=== PATIENT | female | born 1995 | race American Indian/Alaskan Native ===

== ENCOUNTER 2017-08-24 02:40 | Outpatient (CLI) | payer MEDICAID ==
[2017-08-24] MEDS ORDERED: VISTARIL PO ONE (03:49)
[2017-08-24 04:41] VITALS: BP 113/68
== END 2017-08-24 04:46 | disposition home or self-care (01) ==
LOC: TRG 02:40 → LD 02:40 → TRG 04:46
PROVIDERS: ATTEND Obstetrics & Gynecology
DX: O47.1 False labor at or after 37 completed weeks of gestation (principal); Z3A.37 37 weeks gestation of pregnancy
CPT/HCPCS: 59025; Q0177

== ENCOUNTER 2017-08-24 18:19 | Inpatient (IN) | payer MEDICAID ==
[2017-08-24] MEDS ORDERED: LACTATED RINGERS 1,000 ML IV ONE (18:46)
[2017-08-24] MEDS ORDERED: STADOL IV ONE (18:47)
[2017-08-24] MEDS ORDERED: MINERAL OIL PO PRN (21:34)
[2017-08-24] MEDS ORDERED: BRETHINE SUB-Q PRN (21:34)
[2017-08-24] MEDS ORDERED: ZOFRAN IV PRN (21:34)
[2017-08-24] MEDS ORDERED: ePHEDrine SULFATE IV PRN ×2 (21:34→23:00)
[2017-08-24] MEDS ORDERED: BRETHINE IVP PRN (21:34)
[2017-08-24] MEDS ORDERED: XYLOCAINE 2% INFILTRATI ONE (21:34)
[2017-08-24] MEDS ORDERED: SUBLIMAZE IV PRN (21:34)
--- NOTE | 2017-08-24 21:42 | History and Physical Report ---
History of Present Illness Date of examination: 08/24/17 Chief complaint: Active labor @ 37w History of present illness: EDC Calculations by LMP: 09/14/2017 Past History : 1 Term Births: 0 Premature Births: 0 Living Children: 0 Para: 0 Mult. Births: 0 Prev : 0 Prev. attempt? 0 Aborta: 0 Elect. Ab: 0 Spont. Ab: 0 Ectopics: 0 Past Medical History: Negative Past Medical History Past Surgical History: negative Past Medical History Anesthesia Complications: negative Anemia: negative Autoimmune Disorder: negative Bleeding Disorder: negative Blood Transfusions: negative Breast Disease: negative Diabetes: negative Heart Disease: negative Hypertension: negative Hepatitis/Liver Disease: negative Kidney Disease/UTI: negative Neurologic/Epilepsy/Migraines: negative Phlebitis/Varicosities: negative Psychiatric: negative Pulmonary Disease/Asthma: negative Thyroid Disease: negative Hospitalizations: negative Surgery (Non-community planning technician): negative Abnormal PAP: negative ZEE Exposure: negative Infertility: negative Uterine Anomaly: negative Uterine Surgery (not C/S): negative Other Gynecologic Problems: negative Family Hx: Father - testicular cancer Social Hx: single daily THC user Infection History Hx of STD: none HIV Risk Eval: no Hepatitis B Risk Eval: low risk Personal hx. of genital herpes: no Partner hx. of genital herpes: no Rash, Viral, or Febrile illness since last LMP? no Varicella/Chicken Pox Status: Immunized Genetic History Congenital Heart Defect: Mom: no Dad: no Kevin Disease: Mom: no Dad: no Thalassemia Mom: no Dad: no Neural Tube Defect Mom: no Dad: no Down's Syndrome Mom: no Dad: no Jad-Sachs Mom: no Dad: no Sickle Cell Disease/Trait Mom: no Dad: no Hemophilia Mom: no Dad: no Muscular Dystrophy Mom: no Dad: no Cystic Fibrosis Mom: no Dad: no Buck Chorea Mom: no Dad: no Mental Retardation Mom: no Dad: no Fragile X Mom: no Dad: no Other Genetic/Chromosomal Disorder Mom: no Dad: no Child w/other defect Mom: no Dad: no Enviromental Exposures Xray Exposure: no Medication, drug, or alcohol use since LMP: no Chemical/Other Exposure: no Exposure to Cat Liter: no Hx of Parvovirus (Fifth Disease): no Occupational Exposure to Children: none Active Medications (reviewed today): None Current Allergies (reviewed today): No known allergies Past History Past Medical History: other (see HPI) Past Surgical History: other (see HPI) 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) Family/Genetic History: other (see HPI) - Obstetrical History Expected Date of Delivery: 09/14/17 Actual Gestation: 37 Week(s) 0 Day(s) : 1 Para: 0 Number of Pregnancies: 0 Spontaneous Abortions: 0 Induced : 0 Number of Living Children: 0 Medications and Allergies Allergies Allergy/AdvReac Type Severity Reaction Status Date / Time No Known Allergies Allergy Verified 03/19/16 04:05 Review of Systems All systems: negative - Vital Signs Vital signs: Vital Signs Temp Resp 98.6 F 18 08/24/17 18:31 08/24/17 18:31 Temp Pulse Resp BP Pulse Ox 98.6 F 08/24/17 18:31 08/24/17 18:31 - Physical Exam Breasts: Positive: normal Cardiovascular: Regular rate Lungs: Positive: Clear to auscultation, Normal air movement Abdomen: Positive: normal appearance, soft Genitourinary (Female): Positive: normal external genitalia, normal perenium Vulva: both: normal Vagina: Positive: normal moisture Uterus: Positive: normal size Extremities: Positive: normal - Obstetrical FHR: auscultation normal Uterine Contraction Monitor Mode: External Cervical Dilatation: 4.5 (per newsroom intern) Cervical Effacement Percentage: 100 Uterine Contraction Pattern: Regular Uterine Tone Measurement Phase: Contraction Results All other labs normal. Assessment and Plan 21y/o @ 37 weeks admitted for labor. She is rosita regularly and changed her cervix from 3 to 4.5 in 2 hours. GBS neg, Admission orders in EMR. start bolus for epidural. Anticipate . - Patient Problems (1) Active labor at term Current Visit: Yes Status: Acute (2) 37 weeks gestation of Current Visit: Yes Status: Acute (3) Sickle cell trait Current Visit: Yes Status: Acute
[2017-08-24] MEDS ORDERED: PITOCin/NS 20 UNIT/1000ML DRIP 20 UNITS/1,000 ML BAG IV SCH (22:00)
[2017-08-24 22:16] LABS: Hematocrit 28.1 % (30.3-42.9); Hemoglobin 8.9 gm/dl (10.1-14.3); Mean Corpuscular HGB Conc 32 % (30-34); Platelet Count 253 K/mm3 (140-440); Red Blood Count 4.46 M/mm3 (3.65-5.03)
[2017-08-24 22:19] LABS: Mean Corpuscular Hemoglobin 20 pg (28-32); Mean Corpuscular Volume 63 fl (79-97)
[2017-08-24] MEDS: LACTATED RINGERS 1,000 ML IV SCH (22:39)
[2017-08-24] MEDS ORDERED: NARCAN 2 MG/2 ML IV PRN (23:00)
--- NOTE | 2017-08-24 23:00 | Anesthesia Consultation ---
Anesthesia Consult and Med Hx - Airway Anesthetic Teeth Evaluation: Good ROM Head & Neck: Adequate Mental/Hyoid Distance: Adequate Mallampati Class: Class II Intubation Access Assessment: Good - Pulmonary Exam CTA: Yes - Cardiac Exam Cardiac Exam: RRR - Pre-Operative Health Status ASA Pre-Surgery Classification: ASA2 Proposed Anesthetic Plan: Epidural, Spinal - Pulmonary Hx Asthma: No - Cardiovascular System Hx Hypertension: No - Central Nervous System Hx Seizures: No Hx Psychiatric Problems: No - Endocrine Hx Renal Disease: No Hx Hypothyroidism: No Hx Hyperthyroidism: No - Hematic Hx Anemia: No Hx Sickle Cell Disease: No - Other Systems Hx Alcohol Use: No
[2017-08-24] MEDS: fentaNYL-BUPIV 2 MCG/ML-0.125% 200 MCG/100 ML BAG EPIDURAL SCH (23:58)
--- NOTE | 2017-08-25 00:20 | Progress Note ---
Assessment and Plan AROM and IUPC placed without difficulty. mild ctx noted after epidural. Will start pitocin augmentation. Anticipate - Patient Problems (1) Active labor at term Current Visit: Yes Status: Acute (2) 37 weeks gestation of Current Visit: Yes Status: Acute (3) Sickle cell trait Current Visit: Yes Status: Acute Subjective - Subjective Date of service: 08/25/17 Principal diagnosis: IUP @ 37+1, labor, mec fluid Interval history: EDC Calculations by LMP: 09/14/2017 Past History : 1 Term Births: 0 Premature Births: 0 Living Children: 0 Para: 0 Mult. Births: 0 Prev : 0 Prev. attempt? 0 Aborta: 0 Elect. Ab: 0 Spont. Ab: 0 Ectopics: 0 Past Medical History: Negative Past Medical History Past Surgical History: negative Past Medical History Anesthesia Complications: negative Anemia: negative Autoimmune Disorder: negative Bleeding Disorder: negative Blood Transfusions: negative Breast Disease: negative Diabetes: negative Heart Disease: negative Hypertension: negative Hepatitis/Liver Disease: negative Kidney Disease/UTI: negative Neurologic/Epilepsy/Migraines: negative Phlebitis/Varicosities: negative Psychiatric: negative Pulmonary Disease/Asthma: negative Thyroid Disease: negative Hospitalizations: negative Surgery (Non-building consultant): negative Abnormal PAP: negative ZEE Exposure: negative Infertility: negative Uterine Anomaly: negative Uterine Surgery (not C/S): negative Other Gynecologic Problems: negative Family Hx: Father - testicular cancer Social Hx: single daily THC user Infection History Hx of STD: none HIV Risk Eval: no Hepatitis B Risk Eval: low risk Personal hx. of genital herpes: no Partner hx. of genital herpes: no Rash, Viral, or Febrile illness since last LMP? no Varicella/Chicken Pox Status: Immunized Genetic History Congenital Heart Defect: Mom: no Dad: no Kevin Disease: Mom: no Dad: no Thalassemia Mom: no Dad: no Neural Tube Defect Mom: no Dad: no Down's Syndrome Mom: no Dad: no Jad-Sachs Mom: no Dad: no Sickle Cell Disease/Trait Mom: no Dad: no Hemophilia Mom: no Dad: no Muscular Dystrophy Mom: no Dad: no Cystic Fibrosis Mom: no Dad: no Elliott Chorea Mom: no Dad: no Mental Retardation Mom: no Dad: no Fragile X Mom: no Dad: no Other Genetic/Chromosomal Disorder Mom: no Dad: no Child w/other defect Mom: no Dad: no Enviromental Exposures Xray Exposure: no Medication, drug, or alcohol use since LMP: no Chemical/Other Exposure: no Exposure to Cat Liter: no Hx of Parvovirus (Fifth Disease): no Occupational Exposure to Children: none Active Medications (reviewed today): None Current Allergies (reviewed today): No known allergies Patient reports: no new complaints (comfortable s/p epidural) Objective - Vital Signs Vital Signs: Vital Signs - 12hr 08/24/17 08/24/17 18:31 22:40 Temperature 98.6 F 98.9 F Pulse Rate 84 Respiratory 18 18 Rate Blood Pressure 128/70 [Left] O2 Sat by Pulse 100 Oximetry - Exam Breasts: normal Cardiovascular: Regular rate Lungs: Clear to auscultation, Normal air movement Abdomen: Present: normal appearance, soft Vulva: both: normal Uterus: Present: normal FHR: auscultation normal, category 1 Uterine Contraction Monitor Mode: Internal Cervical Dilatation: 5 (AROM - mec) Cervical Effacement Percentage: 90 station: -1 Uterine Contraction Pattern: Regular Uterine Tone Measurement Phase: Contraction Uterine Contraction Intensity: Mild Extremities: normal Deep Tendon Reflex Grade: Normal +2 - Labs Labs: Abnormal Labs 08/24/17 21:56 WBC 14.3 H Hgb 8.9 L Hct 28.1 L MCV 63 L MCH 20 L RDW 18.0 H Laboratory Results - last 24 hr 08/24/17 08/24/17 21:56 21:56 WBC 14.3 H RBC 4.46 Hgb 8.9 L Hct 28.1 L MCV 63 L MCH 20 L MCHC 32 RDW 18.0 H Plt Count 253 Blood Type B POSITIVE Antibody Screen Negative
[2017-08-25] MEDS: PITOCin/NS 30 UNIT/500ML 30 UNITS/500 ML BAG IV SCH ×3 (00:29→02:49)
[2017-08-25] MEDS: LACTATED RINGERS 1,000 ML IV SCH (02:51)
[2017-08-25] MEDS ORDERED: XYLOCAINE MPF 2% ONE ×3 (04:41→06:56)
[2017-08-25] MEDS: fentaNYL-BUPIV 2 MCG/ML-0.125% 200 MCG/100 ML BAG EPIDURAL SCH (06:35)
--- NOTE | 2017-08-25 08:35 | Procedure Note ---
OB Delivery Note - Delivery Date of Delivery: 08/25/17 ( Male) Community Relations Advisor: MARISSA BARNEY Estimated blood loss: other (400) - Vaginal Delivery presentation: vertex Delivery position: OA Intrapartum events: meconium Delivery induction: none Delivery augmentation: rupture of membranes, pitocin Delivery monitor: external FHT, internal uterine Route of delivery: Delivery placenta: spontaneous Delivery cord: 3 umbilical vessels Delivery laceration: 1st degree (pt declined repair) Anesthesia: epidural Delivery comments: male infant del over intact perineum SILVINO, crying and vigourous after delivery, placed skin to skin on mother's abdomen. 3 vessel cord clamped and cut. Placenta del intact and complete. small 1st degree vag lac hemostatic, patient declined repair. Apgars 8/9, wt 6#2, maternal EBL 400. Mother and infant remain LDR stable. - Infant A at 1 minute: 8 at 5 minutes: 9 Gender: Male (6#2)
[2017-08-25] MEDS ORDERED: MOTRIN PO SCH (10:44)
[2017-08-25] MEDS ORDERED: COLACE PO SCH (11:00)
[2017-08-25] MEDS ORDERED: TYLENOL PO PRN (11:00)
[2017-08-25] MEDS ORDERED: PHENERGAN PO PRN (11:00)
[2017-08-25] MEDS ORDERED: TUCKS PAD TP PRN (11:00)
[2017-08-25] MEDS ORDERED: DULCOLAX PR PRN (11:00)
[2017-08-25] MEDS ORDERED: LANSINOH TP PRN (11:00)
[2017-08-25] MEDS ORDERED: DERMOPLAST TP PRN (11:00)
[2017-08-25] MEDS ORDERED: NORCO 5/325 PO PRN (11:00)
[2017-08-25] MEDS ORDERED: PRENATAL VITAMIN PO SCH (11:00)
[2017-08-25] MEDS ORDERED: SODIUM CHLORIDE FLUSH SYRINGE 10 ML IV PRN (11:00)
[2017-08-25] MEDS ORDERED: PITOCin/NS 20 UNIT/1000ML DRIP 20 UNITS/1,000 ML BAG IV SCH (11:00)
[2017-08-25] MEDS ORDERED: BENADRYL PO PRN (11:00)
[2017-08-25] MEDS: MOTRIN PO SCH ×2 (12:00→18:28)
[2017-08-25 19:32] LABS: Hematocrit 22.1 % (30.3-42.9); Hemoglobin 6.8 gm/dl (10.1-14.3)
[2017-08-25] MEDS ORDERED: MILK OF MAGNESIA PO PRN (22:00)
[2017-08-26] MEDS: FEOSOL PO SCH ×2 (05:59→09:18)
[2017-08-26] MEDS: MOTRIN PO SCH ×2 (05:59)
[2017-08-26] MEDS ORDERED: BOOSTRIX IM ONE (06:00)
--- NOTE | 2017-08-26 10:31 | Discharge Summary ---
Providers - Providers Date of Admission: 08/24/17 22:17 Date of discharge: 08/26/17 Attending physician: KAMERON TERRY 08/25/17 10:44 Consult to Feed Mill Supervisor [CONS] Routine Reason For Exam: assistance with , SNS Primary care physician: KAMERON TERRY Hospitalization Reason for admission: active labor Delivery: Procedure details: see delivery note Episiotomy: other (see delivery note) complications: none Discharge diagnosis: IUP at term delivered Hospital course: pt s/p vaginal delivery. Antepartum and post courses complicated by anemia for which she is not symptomatic. She denies any headaches, blurry vision , chest pain or palpitations. Condition at discharge: Good Disposition: DC-01 TO HOME OR SELFCARE Plan - Discharge Medications Prescriptions: Docusate Sodium [Colace] 100 mg PO BID PRN #60 capsule PRN Reason: Constipation Ferrous Sulfate [Feosol 325 MG tab] 325 mg PO TID #90 tablet Ibuprofen [Motrin 800 MG tab] 800 mg PO Q8HR PRN #30 tablet PRN Reason: Pain Lidocain2.5%/Prilocai2.5% [Emla] 5 gm TP ONCE PRN #1 tube PRN Reason: Pain - Provider Discharge Summary Activity: routine, no sex for 6 weeks, no heavy lifting 4 weeks, no strenuous exercise Diet: routine Instructions: routine Additional instructions: [] Smoking cessation referral if applicable(refer to patient education folder for contact #) [] Refer to [facility]'s [facility] Booklet Call your doctor immediately for: * Fever > 100.5 * Heavy vaginal bleeding ( >1 pad per hour) * Severe persistent headache * Shortness of breath * Reddened, hot, painful area to leg or breast * Drainage or odor from incision. * Keep incision clean and dry at all times and follow doctor's instructions regarding bathing/showering - Follow up plan Follow up: KAMERON TERRY MD [Primary Care Provider] - 7 Days
[2017-08-26 15:33] VITALS: BP 116/76
== END 2017-08-26 15:20 | disposition home or self-care (01) | DRG 775 ==
LOC: TRG 18:19 → LD 18:20 → TRG 22:16 → LD 22:17 → OB 08-25 10:21
PROVIDERS: ADMIT Obstetrics & Gynecology; ATTEND Obstetrics & Gynecology
PROC: 10E0XZZ Delivery of Products of Conception, External Approach (ICD-10-PCS; principal; 2017-08-25)
PROC: 3E0R3BZ Introduction of Anesthetic Agent into Spinal Canal, Percutaneous Approach (ICD-10-PCS; 2017-08-25)
PROC: 00HU33Z Insertion of Infusion Device into Spinal Canal, Percutaneous Approach (ICD-10-PCS; 2017-08-25)
PROC: 10H07YZ Insertion of Other Device into Products of Conception, Via Natural or Artificial Opening (ICD-10-PCS; 2017-08-25)
PROC: 10907ZC Drainage of Amniotic Fluid, Therapeutic from Products of Conception, Via Natural or Artificial Opening (ICD-10-PCS; 2017-08-25)
DX: O77.0 Labor and delivery complicated by meconium in amniotic fluid (principal); O99.02 Anemia complicating childbirth; D57.3 Sickle-cell trait; Z3A.37 37 weeks gestation of pregnancy; Z37.0 Single live birth; O70.0 First degree perineal laceration during delivery
CPT/HCPCS: 36415; 85014; 85018; 85027; 86592; 86850; 86900; 86901; J0595; J2590; J7120

== ENCOUNTER 2021-08-06 00:06 | Emergency (ER) | payer MEDICAID, OTHER ==
[2021-08-06] MEDS ORDERED: oxyCODONE /ACETAMINOPHEN 5-325MG TAB PO ONE (00:37)
[2021-08-06] MEDS ORDERED: ONDANSETRON 4 MG ODT TAB PO ONE (00:37)
[2021-08-06] MEDS ORDERED: CLINDAMYCIN 300 MG CAP PO ONE (00:37)
[2021-08-06] MEDS ORDERED: KETOROLAC 30 MG/1 ML INJ IM ONE (00:37)
--- NOTE | 2021-08-06 01:10 | Emergency Department Report ---
ED General Adult HPI - General Chief complaint: Dental/Oral Stated complaint: TOOTH ACHE Source: patient Mode of arrival: Ambulatory Limitations: No Limitations - History of Present Illness Initial comments: Patient is a 25-year-old -[place] Citizen female with no past medical history presents to the ED with complaint of acute onset persistent severe painful swollen left mandibular gingiva with premolar and molar toothache for the last 3 days. Patient states that she has been taking Goody's powder with no relief. Patient states the pain is constant and persistent and that she is unable to eat because of worsening pain. Patient states that tonight she was unable to sleep because of worsening pain in the left mandible. Patient denies fever, chills, nausea and vomiting, sore throat, headache, dizziness, syncope, chest pain, shortness of breath or back pain. MD Complaint: Left mandibular premolar and molar toothache, painful swollen gingiva -: Sudden, days(s) (3) Location: mouth Radiation: non-radiation Severity scale (0 -10): 8 Quality: aching, sharp Consistency: constant Improves with: none Worsens with: eating Associated Symptoms: denies other symptoms. denies: confusion, chest pain, cough, diaphoresis, headaches, loss of appetite, malaise, nausea/vomiting, rash, seizure, shortness of breath, syncope, weakness Treatments Prior to Arrival: NSAID - Related Data Previous Rx's Medication Instructions Recorded Last Taken Type Docusate Sodium [Colace] 100 mg PO BID PRN #60 capsule 08/25/17 Unknown Rx Ferrous Sulfate [Feosol 325 MG tab] 325 mg PO TID #90 tablet 08/25/17 Unknown Rx Ibuprofen [Motrin 800 MG tab] 800 mg PO Q8HR PRN #30 tablet 08/25/17 Unknown Rx Lidocain2.5%/Prilocai2.5% [Emla] 5 gm TP ONCE PRN #1 tube 08/25/17 Unknown Rx Acetaminophen/Codeine [Tylenol 1 tab PO Q6H PRN #12 tab 08/06/21 Unknown Rx /Codeine # 3 tab] Clindamycin [Clindamycin CAP] 300 mg PO Q8H #30 cap 08/06/21 Unknown Rx Ketorolac [Toradol] 10 mg PO Q8H PRN #20 tab 08/06/21 Unknown Rx Allergies Allergy/AdvReac Type Severity Reaction Status Date / Time No Known Allergies Allergy Verified 03/19/16 04:05 ED Review of Systems ROS: Stated complaint: TOOTH ACHE Other details as noted in HPI Constitutional: denies: chills, fever Eyes: denies: eye pain, eye discharge, vision change ENT: dental pain (left mandibular premolar and molar toothache), other (Swollen painful left mandibular gingiva). denies: ear pain, throat pain Respiratory: denies: cough, shortness of breath, wheezing Cardiovascular: denies: chest pain, palpitations Endocrine: no symptoms reported Gastrointestinal: denies: abdominal pain, nausea, diarrhea Genitourinary: denies: urgency, dysuria, discharge Musculoskeletal: denies: back pain, joint swelling, arthralgia Skin: denies: rash, lesions Neurological: denies: headache, weakness, paresthesias Psychiatric: denies: anxiety, depression Hematological/Lymphatic: denies: easy bleeding, easy bruising ED Past Medical Hx - Past Medical History Hx Hypertension: No Hx Diabetes: No Hx Deep Vein Thrombosis: No Hx Renal Disease: No Hx Sickle Cell Disease: No Hx Seizures: No Hx Asthma: No Hx HIV: No Additional medical history: anemia - Surgical History Additional Surgical History: RIGHT EYE SURGERY - Social History Smoking Status: Never Smoker - Medications Home Medications: Home Medications Medication Instructions Recorded Confirmed Last Taken Type Docusate Sodium [Colace] 100 mg PO BID PRN #60 capsule 08/25/17 Unknown Rx Ferrous Sulfate [Feosol 325 MG tab] 325 mg PO TID #90 tablet 08/25/17 Unknown Rx Ibuprofen [Motrin 800 MG tab] 800 mg PO Q8HR PRN #30 tablet 08/25/17 Unknown Rx Lidocain2.5%/Prilocai2.5% [Emla] 5 gm TP ONCE PRN #1 tube 08/25/17 Unknown Rx Acetaminophen/Codeine [Tylenol 1 tab PO Q6H PRN #12 tab 08/06/21 Unknown Rx /Codeine # 3 tab] Clindamycin [Clindamycin CAP] 300 mg PO Q8H #30 cap 08/06/21 Unknown Rx Ketorolac [Toradol] 10 mg PO Q8H PRN #20 tab 08/06/21 Unknown Rx ED Physical Exam - General Limitations: No Limitations General appearance: alert, in no apparent distress - Head Head exam: Present: atraumatic, normocephalic, normal inspection - Eye Eye exam: Present: normal appearance, PERRL, EOMI Pupils: Present: normal accommodation - ENT ENT exam: Present: mucous membranes moist, TM's normal bilaterally, normal external ear exam, other (Swollen, tender left mandibular gingiva; tender left mandibular premolar and molar teeth) - Neck Neck exam: Present: normal inspection, full ROM. Absent: tenderness - Respiratory Respiratory exam: Present: normal lung sounds bilaterally. Absent: respiratory distress, wheezes, rales, rhonchi, stridor, chest wall tenderness, accessory muscle use, decreased breath sounds, prolonged expiratory - Cardiovascular Cardiovascular Exam: Present: regular rate, normal rhythm, normal heart sounds. Absent: systolic murmur, diastolic murmur, rubs, gallop - GI/Abdominal GI/Abdominal exam: Present: soft, normal bowel sounds. Absent: tenderness, guarding, rebound, hyperactive bowel sounds, hypoactive bowel sounds, orga nomegaly, mass - Extremities Exam Extremities exam: Present: normal inspection, full ROM, normal capillary refill. Absent: tenderness - Back Exam Back exam: Present: normal inspection, full ROM. Absent: tenderness, CVA tenderness (R), CVA tenderness (L), muscle spasm, paraspinal tenderness, vertebral tenderness - Neurological Exam Neurological exam: Present: alert, oriented X3, CN II-XII intact, normal gait, reflexes normal - Psychiatric Psychiatric exam: Present: normal affect, normal mood - Skin Skin exam: Present: warm, dry, intact, normal color. Absent: rash ED Course Vital Signs 08/06/21 00:09 Temperature 98.5 F Pulse Rate 93 H Respiratory 16 Rate Blood Pressure 113/76 O2 Sat by Pulse 98 Oximetry ED Medical Decision Making - Medical Decision Making This is a 25-year-old -[place] Citizen female with no past medical history presents to the ED with complaint of acute onset persistent severe painful swollen left mandibular gingiva with premolar and molar toothache for the last 3 days. Patient states that she has been taking Goody's powder with no relief. Patient states the pain is constant and persistent and that she is unable to eat because of worsening pain. Patient states that tonight she was unable to sleep because of worsening pain in the left mandible. In the ED, patient is alert and oriented x3 and is not in any distress. Patient was treated for pain in the ED. On reevaluation, patient's pain is well controlled medication. Patient will discharge home on pain medications and antibiotics and advised to follow-up with her dentist or primary care physician in 7 to 10 days for reevaluation or return to the ED immediately if symptoms get worse. - Differential Diagnosis Dental abscess; gingivitis; dental caries; Critical care attestation.: If time is entered above; I have spent that time in minutes in the direct care of this critically ill patient, excluding procedure time. ED Disposition Clinical Impression: Dental abscess, Acute gingivitis, Dental caries Disposition: HOME / SELF CARE / HOMELESS Is pt being admited?: No Does the pt Need Aspirin: No Condition: Stable Instructions: Dental Abscess, [id number], Trench Mouth, Dental Extraction, Care After, [id number] Additional Instructions: Take medications as advised, drink plenty of fluids and follow-up with your primary care physician in 7 to 10 days for reevaluation. Return to the ED immediately if symptoms get worse. Prescriptions: Clindamycin [Clindamycin CAP] 300 mg PO Q8H #30 cap Ketorolac [Toradol] 10 mg PO Q8H PRN #20 tab PRN Reason: Pain Acetaminophen/Codeine [Tylenol /Codeine # 3 tab] 1 tab PO Q6H PRN #12 tab PRN Reason: Pain , Severe (7-10) Referrals: LUI PINZON JR, MD [Primary Care Provider] - 3-5 Days [facility] [Outside] - 7-10 days Time of Disposition: 01:15 Print Language: MAORI
[2021-08-06 01:44] VITALS: BP 110/73
== END 2021-08-06 01:44 | disposition home or self-care (01) ==
LOC: ED 00:06
DX: K04.7 Periapical abscess without sinus (principal); K05.00 Acute gingivitis, plaque induced; K02.9 Dental caries, unspecified
CPT/HCPCS: 96372; 99282; J1885; J3490; Q0162